=== PATIENT | male | born 1955 | race Caucasian/White ===

== ENCOUNTER 2024-12-23 12:24 | Outpatient (REF) | payer MEDICARE, SELFPAY ==
[2024-12-23 14:28] LABS: TSH reflex Free T4 0.95 uIU/mL (0.32-4.0)
--- OUTSIDE RECORDS SUMMARY | 2024-12-23 14:45 | XMS_ITS | Encounter Summary ---
Author Organization [facility] [address] Care Team Providers Care Brake Press Operator Name Role Phone Israel Keita MD Primary Care Provider [phone] Encounter Details Date Type Department Care Team (Late st Contact Info) Description 06/25/2024 9:55 AM EDT Hospital Encounter TH HISTORIC ENCOUNTERS EASTERN CONVERSION ONLY Social History Tobacco Use Types Packs/Day Years Used Date Smoking Tobacco: Every Day Cigarettes Smokeless Tobacco: Never Alcohol Use Standard Drinks/Week Comments Yes 0 (1 standard drink = 0.6 oz pur e alcohol) Sex and Gender Information Value Date Recorded Sex Assigned at Male 07/24/2024 9:21 AM EST Legal Sex Male 5:42 AM EST Gender Identity Male 07/24/2024 9:21 AM EST Sexual Orientation Straight 07/24/2024 9: 21 AM EST documented as of this encounter Last Filed Vital Signs Vital Sign Reading Time Taken Comments Blood Pressure - - Pulse - - Temperature - - Respiratory Rate - - Oxygen Saturation - - Inhaled Oxygen Concentration - - Weight 74.6 kg (164 lb 7.4 oz) 06/18/2024 10:30 AM EDT Height 175.3 cm (5' 9 ) 05/10/2023 10:41 AM EDT Body Mass Index 23.6 12/10/2023 11:02 AM EDT documented in this encounter Progress Notes * Historical, Notes Results - 06/25/2024 10:00 AM EDT 1040: PT arrives this morning for cycle 1 day 15 (week 3) of rituximab. PT reports recent stuffy nose and a dry cough. PT sts he had one day of a sore throat and chills which have resolved, denies any close sick contacts. Reported to Dr. Vazquez, respiratory direct viral panel obtained and sent. PTcontinues to report severe fatigue from treatment with some relief from rest. PTs BP is much betterthan last week, sts he sees his PCP tomorrow to f/u the HTN concern from last week. PT also sts he was able to get his plavix refilled and is back on that now. Otherwise stable assessment. PIV inserted, +BR noted, labs obtained and sent, flushed per protocol, fluids initiated and premedications admi nistered. PT given an apple juice, denies other concerns, call gonzalez in reach. Per Dr. Vazquez's note: obtain labs on week 1 and week 3 to monitor, no need to wait for results toresume treatment. Deacdron noted to be added to pre-medications. Reported to Dr. Vazquez as PT has been tolerating Rituximab well without deacdron added. Dr. Vazquez sts to omit the deacdron as there is no need att. 1145: Rituximab infusion initiated. PT denies concerns, watching tv, call gonzalez in reach. 1230: PT well tolerating Rituximab infusion thus far, denies concerns, call gonzalez in reach. 1315: Pt continues to tolerate Rituximab well without concern, up to the bathroom to urinate, eating lunch tray, call gonzalez in reach. 1405: PT continues to tolerate Rituximab well without concern. Family at chairside talking, denies concerns, call gonzalez in reach. 1500: Rituximab infusion completed without concern. Respiratory panel resulted with +rhinovirus, PTmade aware and encouraged to hydrate and call with worsening sx. PIV flushed per protocol and removed, dressing applied. PT provided with apt reminder via calendar, verbalized understanding, left unit, stable at D/C. documented in this encounter Plan of Treatment Upcoming Encounters Date Type Department Care Team ([facility] st Contact Info) Description 01/14/2025 11:00 AM EDT Office Visit Endocrinology [address] [place] [address] Sandy Lira PA [address] [place] [address] 01/15/2025 11:00 AM EDT Office Visit [facility] Hematology Oncology [address] [place] [phone] Сергей Vazquez MD [address] [place] [address] 01/15/2025 11:30 AM EDT Appointment [facility] [address] [place] [phone] documented as of this encounter Visit Diagnoses Not on filedocumented in this encounter Care Teams Brake Press Operator Relationship Specialty Start Date End Date Israel Keita MD PCP - General Internal Medicine 04/03/19 09/17/24 documented as of this encounter
--- OUTSIDE RECORDS SUMMARY | 2024-12-23 14:45 | XMS_ITS | Encounter Summary ---
Author Organization [facility] Address [address] [place], [place] [id number] Care Team Providers Care Fur Tinter Name Role Phone Israel Keita MD Primary Care Provider Unavailab le Encounter Details Date Type Department Care Team Description 06/11/2024 Social Work [facility] Oncology Services [address] [place] [address] Jun Santos CDC ASSOCIATE Social History Tobacco Use Types Packs/Day Years Used Date Smoking Tobacco: Every Day Cigarettes 0.5 Smokeless Tobacco: Never Alcohol Use Standard Drinks/Week Comments Yes 0 (1 standard drink = 0.6 oz pur e alcohol) on occasion Sex and Gender Information Value Date Recorded Sex Assigned at Male 01/18/2023 4:34 PM EDT Gender Identity Not on file Sexual Orientation Not on file Job Start Date Occupation Industry Not on file Not on file Not on file documented as of this encounter Plan of Treatment Not on file documented as of this encounter Visit Diagnoses Not on filedocumented in this encounter Care Teams Fur Tinter Relationship Specialty Start Date End Date Israel Keita MD PCP - General Internal Medicine 11/23/22 documented as of this encounter
--- OUTSIDE RECORDS SUMMARY | 2024-12-23 14:45 | XMS_ITS | Encounter Summary ---
Author Organization [facility] Address [address] [place] [address] Care Team Providers Care Hand Molder Meat Name Role Phone Israel Keita MD Primary Care Provider [phone] Encounter Details Date Type Department Care Team (Late st Contact Info) Description 07/02/2024 9:43 AM EDT Hospital Encounter TH HISTORIC ENCOUNTERS [...] - Inhaled Oxygen Concentration - - Weight 75.8 kg (167 lb 3.2 oz) 07/02/2024 9:14 A M EDT Height 175.3 cm (5' 9 ) 05/10/2023 10:41 AM EDT Body Mass Index 23.99 12/10/2023 11:02 AM EDT documented in this encounter Progress Notes * Historical, Notes Results - 07/02/2024 10:00 AM EDT 1030: Pt arrives this morning with family after [facility] for his fourth weekly treatment of Rituximab.PT reports feeling very fatigued after testing + for Rhinovirus last week. PT also reporting clogged ears , sts he reported to Dr. Vazquez this morning and he will be sending over a Sudafed prescription for 5 days. Otherwise stable assessment. PIV inserted, +BR noted, flushed per protocol and fluids initiated. Premedications administered and PT given some water and snacks, watching tv, call bellin reach. 1130: Rituximab infusion initiated, at multistep rate below. PT denies concerns, call gonzalez in reach. Rituximab multi-step rate : 100mg/hr : 71.4mL/hr 200mg/hr : 143mL/hr 300mg/hr: 214mL/hr 400mg/hr : 286mL/hr 1200: PT completed step 1 and well tolerating infusion thus far, denies concerns, call gonzalez in reach. 1230: PT continues to tolerate Rituximab well without concern, call gonzalez in reach. This RN reached out to Dr. Vazquez regarding future [address] Vazquez start PTs Q2MO treatment the first week of 2024. Dr. Vazquez also sts to have PT get labs done the dayof treatment ([id number]) and no need to wait for lab results to proceed with Rituximab infusion. PT made aware and verbalized understanding, continues to tolerate infusion well, call gonzalez in reach. 1300: PT continues to tolerate Rituximab well without concerns, ate lunch tray, call gonzalez in reach. 1400: Rituximab infusion completed without concern. PIV flushed and removed, tip in tact, dressing applied. PT provided with future apts via calendar, verbalized understanding. PT denies other concerns, left unit, stable at D/C. documented in this encounter Plan of Treatment Upcoming Encounters Date Type Department Care Team (Late st Contact Info) Description 01/14/2025 11:00 AM EDT Office Visit [place] [address] [place] [address] Sandy Lira PA [address] [place] [address] 01/15/2025 11:00 AM EDT Office Visit [facility] Hematology Oncology [address] [place] [address] Сергей Vazquez MD [address] [place] [address] 01/15/2025 11:[address] [facility] [address] [phone] documented as of this encounter Visit Diagnoses Not on filedocumented in this encounter Care Teams Hand Molder Meat Relationship Specialty Start Date End Date Israel Keita MD PCP - General Internal Medicine 04/03/19 09/17/24 documented as of this encounter
--- OUTSIDE RECORDS SUMMARY | 2024-12-23 14:45 | XMS_ITS | Clinical Summary ---
Author Organization [facility] Address [address] [place] [address] Care Team Providers Care Internal Controls Manager Name Role Phone Israel Keita MD Primary Care Provider Unavailab le Allergies No known active allergies Medications Medication Sig Dispensed Refills Start Date End Date Status dulaglutide (Trulicity) 1.5 MG/0.5ML subcutaneous pen-injector Inject under the skin. 0 Active metFORMIN (GLUCOPHAGE) tablet 500 mg Take 2 tablets (1,000 mg total) by mouth 2 (two) times a day with meals. 0 Active atorvastatin (LIPITOR) tablet 40 mg Take 1 tablet (40 mg total) by mouth daily. 0 Active clopidogrel (PLAVIX) 75 MG tablet Take 1 tablet (75 mg total) by mouth daily. 0 Active aspirin EC 81 MG tablet Take 1 tablet (81 mg total) by mouth daily. 0 Active polyethylene glycol (MIRALAX) 17 g packet Take 17 g by mouth daily. 0 Active LORazepam (ATIVAN) 0.5 MG tablet Take 1 tablet (0.5 mg total) by mouth every 6 (six) hours as needed. 60 tablet 1 02/01/2023 Active meclizine (ANTIVERT) 25 MG tablet Take 1 tablet (25 mg total) by mouth 3 (three) times a day as needed for dizziness. 30 tablet 1 02/08/2023 Active Semaglutide (OZEMPIC, 0.25 OR 0.5 MG/DOSE, SC) Inject under the skin. 0 Active megestrol (MEGACE) suspension 40 mg/mL TAKE 20 ML (800 MG TOTAL) BY MOUTH DAILY. 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 Family History Medical History Relation Name Comments Cancer Father Cancer Sister Relation Name Status Comments Father Sister Social History Tobacco Use Types Packs/Day Years Used Date Smoking Tobacco: Every Day Cigarettes 0.5 Smokeless Tobacco: Never Tobacco Cessation:Ready to Q uit: Not Asked; Counseling Given: Not Answered Alcohol Use Standard Drinks/Week Comments Yes 0 (1 standard drink = 0.6 oz pur e alcohol) on occasion Sex and Gender Information Value Date Recorded Sex Assigned at Male 01/18/2023 4:34 PM EDT Gender Identity Not on file Sexual Orientation Not on file Job Start Date Occupation Industry Not on file Not on file Not on file Last Filed Vital Signs Vital Sign Reading Time Taken Comments Blood Pressure 134/55 07/02/2024 10:05 AM EDT Pulse 74 07/02/2024 10:05 AM EDT Temperature 36.5 ??C (97.7 ??F) 07/02/2024 10:05 AM E DT Respiratory Rate 16 07/02/2024 10:05 AM EDT Oxygen Saturation 100% 07/02/2024 10:05 AM EDT Inhaled Oxygen Concentration - - Weight 75.8 kg (167 lb) 07/02/2024 10:05 AM EDT Height 175.3 cm (5' 9 ) 05/10/2023 10:41 AM EDT Body Mass Index 24.66 05/10/2023 10:41 AM EDT Plan of Treatment Health Maintenance Due Date Last Done Comments Hepatitis C Screening 1955 COVID-19 Vaccine (#1) 12/13/1959 Depression Screening 1966 Preventative Health Evaluation 1972 Tobacco Cessation Counseling 1972 Shingrix-Zoster Vaccine (1 o f 2) 1973 Colon Cancer Screening (Colonoscopy) 12/13/1999 RSV Adult > 60+ Yrs or (1 - Risk 60-74 years 1-dose series) 2014 Abdominal Aortic Aneurysm (AAA) Screening 12/13/2019 Fall Risk Assessment 12/13/2019 Influenza Vaccine (#1) 2024 8, 06/11/2016, 08/14/2012 DTap / Tdap / Td (2 - Td or Tdap) 06/11/2026 06/11/2016, 11/29/2003 Pneumococcal Vaccine Completed 12/06/2022, 04/25/2018, 08/14/2012 Hepatitis B Vaccines Aged Out No long er eligible based on patient's age to complete this topic RSV Ped < 20 months Aged Out No longe r eligible based on patient's age to complete this topic Care Teams Internal Controls Manager Relationship Specialty Start Date End Date Israel Keita MD PCP - General Internal Medicine 11/23/22
--- OUTSIDE RECORDS SUMMARY | 2024-12-23 14:45 | XMS_ITS | Encounter Summary ---
Author Organization [facility] Address [address] [place] [address] Care Team Providers Care Animal Warden Name Role Phone Israel Keita MD Primary Care Provider [phone] Encounter Details Date Type Department Care Team (Late st Contact Info) Description 06/18/2024 9:59 AM EDT Hospital Encounter TH HISTORIC ENCOUNTERS [...] - Inhaled Oxygen Concentration - - Weight 74.2 kg (163 lb 9.3 oz) 06/11/2024 8:56 A M EDT Height 175.3 cm (5' 9 ) 05/10/2023 10:41 AM EDT Body Mass Index 23.47 12/10/2023 11:02 AM EDT documented in this encounter Progress Notes * Historical, Notes Results - 06/18/2024 10:00 AM EDT 1010: PT arrives today for cycle 1 day 8 (second treatment) of Rituximab. PT denies any acute concerns, although does report severe fatigue for the past week. Otherwise stable assessment. PIV inserted, +BR noted, flushed per protocol, fluids initiated. PTs BP noted to be high; 191/92 - PT denies any sx. Reported to Dr. Vazquez who sts to have PT f/u with his PCP as he was recently taken off BP medications r/t orthostatic hypotension. PT made aware and verbalized understanding. PT denies concerns, call gonzalez in reach. 1100: Premedications tylenol and benadryl administered. PT denies concerns, up to the bathroom witha steady gait and back to chair, call gonzalez in reach. 1205: Rituximab infusion initiated at multistep rate below: 100mg/hr : 71.4mL/hr 200mg/hr : 143mL/hr 300mg/hr : 214mL/hr 400mg/hr : 286mL/hr PT reminded of allergy sx and to let staff know if he feels anything, call gonzalez in reach. 1240: PT well tolerating infusion thus far, denies concerns, eating lunch, call gonzalez in reach. 1330: PT continues to tolerate infusion well thus far, denies concerns, call gonzalez in reach. 1415: PT continues to tolerate infusion well without concerns, call gonzalez in reach. 1500: Rituximab infusion completed without concern. VS WNL now: BP HTN resolved. PIV flushed per protocol and removed, tip in tact. PT provided with future apt reminders via calendar, verbalized understanding, denies other questions or concerns, left unit amb with cane, stable at D/C. documented in this encounter Plan of Treatment Upcoming Encounters Date Type Department Care Team (Late st Contact Info) Description 01/14/2025 11:00 AM EDT Office Visit Endocrinology [address] [address] Sandy Lira PA [address] [place] [address] 01/15/2025 11:00 AM EDT Office Visit [facility] Hematology Oncology [address] [place] [phone] Сергей Vazquez MD [address] [place] [phone] 01/15/2025 11:[address] [facility] [address] [phone] documented as of this encounter Visit Diagnoses Not on filedocumented in this encounter Care Teams Animal Warden Relationship Specialty Start Date End Date Israel Keita MD PCP - General Internal Medicine 04/03/19 09/17/24 documented as of this encounter
--- OUTSIDE RECORDS SUMMARY | 2024-12-23 14:45 | XMS_ITS ---
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 Current Oncology Plans [facility] OP RITUXIMAB (IV/SC) WEEKLY X4* Plan Start Date:07/02/2024 Plan Provider:Сергей Vazquez MD Linked Problems Stage IIb lymphocyte-predomi nant Hodgkin's lymphoma (HCC) Treatment Medications acetaminophen (TYLENOL)albut saul (PROVENTIL)diphenhydrAMINE (BENADRYL)EPINEPHrinefamotidine (PF) (PEPCID)hydrocortisone (SOLU-CORTEF) IVriTUXimab-pvvr (RUXIENCE) infusion (Outpatient record)Saline Flush 0.9 %sodium chloride (NS) 0.9 %sodium chloride 0.9% bolus (NS) Past Plans ONCOLOGY TREATMENT Plan Name Start Date Discontinue Date Treatment Medications Discontinue Reason Plan Provider Cycles [facility] OP RITUXIMAB (IV/SC) WEEKLY X4 4 06/26/2024 acetaminophen (TYLENOL)albuterol (PROVENTIL)dexameth asone (DECADRON)diphenhyd rAMINE (BENADRYL)EPINEPHri neEPINEPHrine (Anaphylaxis) (ADRENALIN)famotidi ne (PF) (PEPCID)hydrocortis one (SOLU-CORTEF) IVHydrocortisone Sod Suc (PF) (Solu-CORTEF)rituxi mab infusionriTUXimab-p vvr (RUXIENCE) infusion (Outpatient record)Saline Flush 0.9 %sodium chloride (NS) 0.9 %sodium chloride 0.9% bolus (NS) Therapy Complete Сергей Vazquez MD 1 of [address] [facility] OP RITUXIMAB (IV/SC) WEEKLY X4 3 11/14/2023 acetaminophen (TYLENOL)albuterol (PROVENTIL)diphenhy drAMINE (BENADRYL)EPINEPHri nefamotidine (PF) (PEPCID)hydrocortis one (SOLU-CORTEF) IVmeperidine (DEMEROL) 25 MG/MLriTUXimab-pvvr (RUXIENCE) infusion (Outpatient record)Saline Flush 0.9 %sodium chloride (NS) 0.9 %sodium chloride 0.9% bolus (NS) Therapy Complete Сергей Vazquez MD 1 of 1 cycle started Radiation Treatments * No radiation treatments are documented for this patient in [facility]. Treatments may have been administered in another system.
--- OUTSIDE RECORDS SUMMARY | 2024-12-23 14:45 | XMS_ITS | Encounter Summary ---
Author Organization [facility] Address [address] [place] [address] Care Team Providers Care Machine Operator Transplanter Name Role Phone Israel Keita MD Primary Care Provider [phone] Encounter Details Date Type Department Care Team (Late st Contact Info) Description 06/11/2024 Hospital Encounter TH HISTORIC ENCOUNTERS EASTERN CONVERSION [...] 11:02 AM EDT documented in this encounter Plan of Treatment Upcoming Encounters Date Type Department Care Team (Late st Contact Info) Description 01/14/2025 11:00 AM EDT Office Visit Endocrinology - [place] [address] [place] [address] Sandy Lira PA [address] [place] [address] 01/15/2025 11:00 AM EDT Office Visit [facility] Hematology Oncology [address] [place] [phone] Сергей Vazquez MD [address] [place] [address] 01/15/2025 11:[address] [facility] [address] [phone] documented as of this encounter Visit Diagnoses Not on filedocumented in this encounter Care Teams Machine Operator Transplanter Relationship Specialty Start Date End Date Israel Keita MD PCP - General Internal Medicine 04/03/19 09/17/24 documented as of this encounter
--- OUTSIDE RECORDS SUMMARY | 2024-12-23 14:45 | XMS_ITS | Encounter Summary ---
Author Organization [facility] Address [address] [place] [address] Care Team Providers Care Ham Boner Name Role Phone Israel Keita MD Primary Care Provider [phone] Encounter Details Date Type Department Care Team (Late st Contact Info) Description 07/02/2024 9:08 AM EDT Hospital Encounter TH HISTORIC ENCOUNTERS EASTERN CONVERSION ONLY Сергей Vazquez MD [address] [place] [address] Social History Tobacco Use Types Packs/Day Years [...] Sign Reading Time Taken Comments Blood Pressure 143/47 07/02/2024 9:14 AM EDT Sitting Left arm Pulse 77 07/02/2024 9:14 AM EDT Temperature - - Respiratory Rate - - Oxygen Saturation - - Inhaled Oxygen Concentration - - Weight 75.8 kg (167 lb 3.2 oz) 07/02/2024 9:14 AM EDT Height 175.3 cm (5' 9 ) 05/10/2023 10:4 1 AM EDT Body Mass Index 23.99 12/10/2023 11:02 AM EDT documented in this encounter Progress Notes * Сергей Vazquez MD - 07/02/2024 9:15 AM EDT Diagnosis/treatment: Stage IIB nodular lymphocyte-predominant Hodgkin lymphoma, diagnosed in 12/2022. He started Rituxan weekly x4 on 01/17/2023 and completed treatment on 02/08/2023. He progressed in 12/2023. He started Rituxan weekly x 4 on 06/10/2024. Interval history: The patient is a 68-year-old gentleman who had anorexia and 105 pound weight loss from late 2020 toearly 2022. He reported associated chills and sweats. He denied fevers. He reported moderate fatigue. He developed epigastric pain in early 2022, which later resolved. An A/P CT with IV and without oral contrast on 10/18/2022 showed lower abdominal lymphadenopathy, with a 5.1 cm right external iliac node, a 1.7 cm right iliac node, 1.0 cm pelvic sidewall node, and a 4.5 cm right inguinal node. He underwent an FNA of a right inguinal node on 11/08/2022 and the cytology showed blood only. He underwent an excisional biopsy of a right inguinal node on 12/28/[address] Daley and the pathology showed anodular lymphocyte-predominant Hodgkin lymphoma, pattern A. Large abnormal lymphocytes were KX95-yxnvzedk, PAX5-positive EJ98-didlknom and PM84-lhnobumx by IHC and and JENNIFER-negative by-SALAS. A CBC on 11/06/2022 showed WBC 10.0, hemoglobin 13.4 with MCV 85, and platelet count 466,000. A PET/CT on 01/15/2023 showed uptake in periaortic, right iliac, and right inguinal lymphadenopathy with SUV 5.6 in the right inguinal region. He tolerated Rituxan well without side effects. A PET/CT in 05/02/2023 showed resolution of uptake in periaortic and right iliac nodes. There was persistent but decreased activity and a distal right external iliac nodes with SUV 4.5 and a solitary right inguinal node with SUV 4.3. He reported resolution of the chills and sweats. He reports lessened fatigue. He has persistent mild anorexia. He lost weight from 176 pounds in 08/09/2023 down to 154 pounds on 04/09/2024, which he attributes in part due to to Ozempic therapy for diabetes. His weight was stable over the last interval. He reports GERD symptoms on the Ozempic. He reports recurrent intermittent night sweats since mid-12/2023. A PET/CT on 01/03/2024 showed mild progression with increased uptake in a right external iliac lymphadenopathy with SUV 7.8 and increased uptake in the right groin lymphadenopathy with SUV 7.9. A PET/CT on 04/15/2024 showed mild progression with increased uptake in a right para-aortic node withSUV 3.4, increased uptake in other retroperitoneal nodes with SUV 3.3 on the left and 3.7 on the right, increased uptake in a right external iliac gloria conglomerate with SUV 9.6, uptake in right external iliac nodes with SUV 6.3, and uptake in right groin nodes with SUV 8.4. There was nonspecific thickening of the upper esophagus with SUV 3.9 and nonspecific uptake in the fundus of the stomach with SUV 4.7. As above, he reports increased GERD symptoms on Ozempic. As below, he underwent an EGD and colonoscopy in 11/2023. He tolerated weekly Rituxan x 4 well without side effects. He reports an improved appetite on the Rituxan infusions. He gained weight from 165 pounds on 06/18/2024 to 167 pounds on 07/02/2024. He was diagnosed with Parkinson's in late 2021 and was started on Sinemet. He reports that his appetite improved in early 2022 on Sinemet. He reports generalized headaches since early 2022. He denies diplopia. He denies cough, hemoptysis,or dyspnea on exertion. He denies nausea or abdominal pain. He reports left hip pain since late 2021. He denies other sites of bone pain. He has a strong family history of cancer. His daughter tested positive for PMS2 mutation and was informed that she had Nick syndrome. 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 The patient's states that his daughter had the same PMS2 mutation. He underwent a colonoscopy on 09/27/[address] Meier which was unremarkable. An abdominal MRI with contrast on 03/29/2023 was unremarkable. He underwent an EGD and colonoscopy on 12/02/[address] Paul and the EGD revealed an irregular Z-line and a biopsy was obtained and the pathology showed esophageal squamocolumnar junction mucosa with rare intraepithelial eosinophils. The colonoscopy was not performed due to a suboptimal prep. He underwent a colonoscopy on 02/28/[address] Paul and a 0.7 cm polyp was found in the ascending colon andexcised and the pathology revealed a tubular adenoma and a 0.3 cm polyp was found in the sigmoid colon and was excised and the pathology revealed a hyperplastic polyp. Past medical history: Parkinson's disease, diabetes, diabetic neuropathy, hyperlipidemia, hypertension, peripheral vascular disease, S/P CVA. Current medications: Sinemet, Trulicity, metformin, atorvastatin, Plavix, aspirin 81 mg. Allergies: No known drug allergies. Family history: His father was diagnosed with Hodgkin's lymphoma in his 30s and age 56 from that cancer. His mother had no history of cancer. A paternal uncle was diagnosed with colon cancer and at an uncertain age from the cancer. 1 of 7 sisters was diagnosed with lung cancer in her 50s and survived that diagnosis. Another of 7 sisters was diagnosed with pancreatic cancer and age 47 from that [facility] [place] er. Another of 7 sisters was diagnosed with non-Hodgkin's lymphoma and in her 50s from that cancer. Another of 7 sisters was diagnosed with kidney cancer at age 72 and has survived that diagnosis. His 2 brothers have no history of cancer. His daughter and son have no history of cancer. His daughter tested positive for PMS 2 mutation and was informed that she has Nick syndrome. Social history: He is retired and formerly worked as a soda jerker. He is . He has a daughter and a son. His 3 grandchildren. He drinks alcohol occasionally. Started smoking in his teens and smoked up to a pack aday and continues to smoke. Review of systems: The remainder of a 10 point review of systems was unremarkable. Physical examination: HEENT: Sclerae anicteric, normal oropharyngeal membrane. Neck: No lymphadenopathy. Lungs: Clear to auscultation. Heart: No murmurs. Abdomen: Soft, nontender, no organomegaly or masses. Extremities: No axillary, inguinal, or femoral lymphadenopathy. No edema. Skin: No rash. Neurologic: Normal gait. Assessment/plan: The patient is a 68-year-old gentleman who presented in 12/2022 with a stage IIB nodular lymphocyte-predominant Hodgkin lymphoma. He reported moderate fatigue and chills and sweats at presentation. I recommended a course of Rituxan. I discussed potential infusion reactions. He tolerated Rituxan well without side effects. A PET/CT in 05/02/2023 showed resolution of uptake in periaortic and right iliac nodes. There was persistent but decreased activity and a distal right external iliac nodes and a solitary right inguinal node. He reported resolution of the chills and sweats. He reported lessened fatigue. He developed recurrent intermittent night sweats in mid-12/2023. He has had continued anorexia and significant weight loss, in part due to Ozempic therapy. I prescribed Megace. A PET/CT on 01/03/2024 showed mild progression with increased uptake in right external iliac lymphadenopathy and right groin lymphadenopathy. A PET/CT on 04/15/2024 showed continued mild progression with increased uptake in intra-abdominal nodes and right groin lymphadenopathy. As he is symptomatic with night sweats, we will repeat a course of Rituxan weekly x 4. We will add Rituxan maintenance every 2 months. He tolerated weekly Rituxan x 4 well without side effects. He reports an improved appetite on the Rituxan infusions. He gained weight from 165 pounds on 06/18/2024 to 167 pounds on 07/02/2024. His daughter was diagnosed with Nick syndrome. The patient carries the same mutation as his daughter and was diagnosed with Nick syndrome. He underwent colonoscopy in 09/2022 which was unremarkable.He underwent an EGD in 11/2023 which was unremarkable. He underwent a colonoscopy in 02/2024 and 2 colonic polyps were excised. An abdominal MRI in late 03/2023 was unremarkable. He is followed by a urologist. This encounter is of high risk. The patient has a Hodgkin's lymphoma, which is a life-threatening condition. He receives treatment with weekly Rituxan, which carries a risk of significant morbidity and mortality. documented in this encounter Plan of Treatment Upcoming Encounters Date Type Department Care Team (Late st Contact Info) Description 01/14/2025 11:00 AM EDT Office Visit Endocrinology - [place] [address] [place] [address] Sandy Lira PA [address] [place] [address] 01/15/2025 11:00 AM EDT Office Visit [facility] Hematology Oncology [address] [place] [phone] Сергей Vazquez MD [address] [place] [phone] 01/15/2025 11:30 AM EDT Appointment [facility] Infusion Center [address] [place] [phone] documented as of this encounter Procedures Procedure Name Priority Date/Time Associated Diagnosis Comments ..MISCELLANEOUS REFERENCE LAB TEST 07/02/2024 ..MISCELLANEOUS REFERENCE LAB TEST 07/02/2024 documented in this encounter Results * Miscellaneous reference lab test (07/02/2024) Provider Onbase MD LAB BLOOD ORDERABLES Final Re sult * Miscellaneous reference lab test (07/02/2024) Provider Onbase MD LAB BLOOD ORDERABLES Final Re sult documented in this encounter Visit Diagnoses Not on filedocumented in this encounter Care Teams Ham Boner Relationship Specialty Start Date End Date Israel Keita MD PCP - General Internal Medicine 04/03/19 09/17/24 documented as of this encounter
--- OUTSIDE RECORDS SUMMARY | 2024-12-23 14:45 | XMS_ITS | Encounter Summary ---
Author Organization [facility] Address [address] [place] [address] Care Team Providers Care Neonatal Social Worker Name Role Phone Israel Keita MD Primary Care Provider [phone] Reason for Visit * Reason Onset Date Comments Referral 12/01/2024 Endo Encounter Details Date Type Department Care Team (Late st Contact Info) Description 12/01/2024 Telephone Internal Medicine - [place] [address] [facility] [address] [place] [phone] Israel Keita MD [address] [facility] [address] [place], [place] [phone] Referral (Endo) Social History Tobacco Use Types Packs/Day Years [...] AM EST documented as of this encounter Progress Notes * Annabella Uribe - 12/01/2024 9:57 AM EDT Referral Request: What insurance does the patient have today? Payor: [employer] / Plan: [facility] MEDICARE ADVANTAGE / Product Type: *No Product type* / Referrals cannot be processed if the insurance is not accurate. If the insurance listed above in red is NO BILLING INFORMATION FOUND FOR THIS ENCOUTNER The patients correct insurance must be obtained and registered in [facility] or their referral can not be processed. Is this a retro request? no. If yes for what date of service do you need the retro referral? not applicable Who is calling to request this referral? N/a If the caller is not the patient, what is their name? not applicable Ask the patient WHO referred them to this specialty: Not an initial visit; it is for follow up/continuation of care. Patients PCP is Dr sIrael Keita FIRST and LAST NAME of SPECIALIST PATIENT is seeing: Sandy Lira What specialty is this? Endo DIAGNOSIS Patient is being seen for (Not a body part or a procedure): diabetes Have you seen this SPECIALIST for this PROBLEM/DX before? If YES, when? Yes. 12/05/23 Have you checked REVIEW or the APPT DESK to see if this referral has already been done or has visits left? yes Is this visit: Follow Up Address of Specialist: [address] [place] [address] Phone # of Specialist: [phone] Fax #: (if applicable): [phone] Does patient have an appointment scheduled?: yes Date of appointment- (including a retro-request): 12/03/24 Is this appointment related to: Not MVA, worker compensation, or surgery related documented in this encounter Plan of Treatment Upcoming Encounters Date Type Department Care Team (Late st Contact Info) Description 01/14/2025 11:00 AM EDT Office Visit Endocrinology - [place] [address] [place] [address] Sandy Lira PA [address] [place] [address] 01/15/2025 11:00 AM EDT Office Visit [facility] Hematology Oncology [address] [place] [phone] Сергей Vazquez MD [address] [place] [phone] 01/15/2025 11:30 AM EDT Appointment [facility] [address] [phone] documented as of this encounter Visit Diagnoses Not on filedocumented in this encounter Care Teams Neonatal Social Worker Relationship Specialty Start Date End Date Israel Keita MD [address] [address] PCP - General Internal Medicine 09/18/24 documented as of this encounter
--- OUTSIDE RECORDS SUMMARY | 2024-12-23 14:45 | XMS_ITS | Encounter Summary ---
Author Organization [facility] Address [address] [place] [address] Care Team Providers Care Licensed Nuclear Control Room Operator Name Role Phone Israel Keita MD Primary Care Provider [phone] Encounter Details Date Type Department Care Team (Latest Contact Info) Description 06/11/2024 9:00 AM EDT Hospital Encounter TH HISTORIC ENCOUNTERS EASTERN CONVERSION ONLY Nodular lymphocyte predominant Hodgkin lymphoma, unspecified site ([facility] V24, CMS/[facility] V28) Social History Tobacco Use Types Packs/Day Years [...] Progress Notes * Historical, Notes Results - 06/11/2024 9:00 AM EDT 0930: PT arrives today with and daughter for initial cycle of Rituximab. PT oriented to unit policies and procedures. PT provided with information handout regarding Rituximab and info reviewed, all questions and concerns addressed. Allergies and medications reconciled. PT sts he last received this medication over 1 yr ago. PT sts he did well with it previously without concerns. PT also denies any acute concerns today. PIV inserted, +BR noted, labs obtained and sent, flushed per protocol and fluids initiated. Per Dr. Vazquez- obtain labs week 1 and week 3 same day of treatment and no need to wait for results to initiate treatment. PT made aware of plan and verbalized understanding, denies concerns, call gonzalez in reach. 1000: Premedications administered and initial assessment obtained. PT given water, denies concerns,call gonzalez in reach. 1110: Rituximab infusion initiated at multistep rate found below: 50mg/hr : 35.7mL/hr 100mg/hr : 71.4mL/hr 150mg/hr: 107mL/hr 200mg/hr : 143mL/hr 250mg/hr : 179mL/hr 300mg/hr : 214mL/hr 350mg/hr : 250mL/hr 400mg/hr : 286mL/hr PT denies concerns, reminded of allergy sx and to let staff know if he feels anything, verbalized understanding, call gonzalez in reach. 1140: PT well tolerated step 1 denies concerns, VS WNL, call gonzalez in reach. 1210: PT well tolerated step 2, denies concerns, VS WNL, up to the bathroom with a steady gait thishour, call gonzalez in reach. 1240: PT well tolerated step 3, denies concerns, ate entire lunch tray, VS WNL, call gonzalez in reach. 1310: PT continues to tolerate ruxience well, denies concerns, VS WNL, step 4 completed and step 5 initiated. PT given more water, call gonzalez in reach. 1340: PT well tolerated step 5, denies concerns, VS WNL, call gonzalez in reach. 1410: PT continues to tolerate ruxience well, denies concerns, step 7 initiated, VS WNL, call gonzalez in reach . 1440: Step 7 completed without concern, VS WNL, PT denies concerns, up to the bathroom again to urinate, call gonzalez in reach. 1450: Rituximab infusion completed without concern. PIV flushed per protocol and removed, tip in tact, dressing applied. BP noted to be high all day today, PT sts he was taken off BP medications r/t orthostatic hypotension. This RN encouraged PT to f/u with pcp regarding HTN. PT provided with future apt reminders via calendar, verbalized understanding, denies other concerns, left unit, stable at D/C. documented in this encounter Plan of Treatment Upcoming Encounters Date Type Department Care Team (Late st Contact Info) Description 01/14/2025 11:00 AM EDT Office Visit Endocrinology [address] [phone] Sandy Lira PA [address] [place] [address] 01/15/2025 11:00 AM EDT Office Visit [facility] Hematology Oncology [address] [place] [phone] Сергей Vazquez MD [address] [place] [phone] 01/15/2025 11:30 AM EDT Appointment [facility] Infusion Center [address] [place] [phone] documented as of this encounter Visit Diagnoses Diagnosis Nodular lymphocyte predominant Hodgkin lymphoma, unspecified site (CMS/HCC V24, CMS/HCC V28) documented in this encounter Care Teams Licensed Nuclear Control Room Operator Relationship Specialty Start Date End Date Israel Keita MD PCP - General Internal Medicine 04/03/19 09/17/24 documented as of this encounter
--- OUTSIDE RECORDS SUMMARY | 2024-12-23 14:45 | XMS_ITS | Clinical Summary ---
Author Organization [facility] Address [address] [place] [address] Phone Care Team Providers Care Pantry Worker Name Role Phone Israel Keita MD Primary Care Provider [phone] Allergies No known active allergies Medications blood-glucose sensor (FREESTYLE JOE 3 SENSOR MISC) 1 Device by Does not apply route every 14 days. 04/15/20 24 Active blood-glucose meter,continuous (FreeStyle Joe 3 [place]) misc 1 Device by Does not apply route daily. 04/15/20 24 Active glucose blood test strip Check twice a day 12/17/19 24 Active carbidopa-levodop a (SINEMET) 25-100 mg per tablet Take 1 Tablet by mouth 3 times daily. Active ONETOUCH DELICA LANCETS MISC Apply 1 Stick topically 2 times daily. 02/13/20 22 Active blood-glucose meter kit Check twice a day 02/13/20 22 Active clopidogreL (PLAVIX) 75 mg tablet TAKE 1 TABLET BY MOUTH DAILY. 90 tablet 1 09/10/19 25 Active atorvastatin (LIPITOR) 40 mg tablet TAKE 1 TABLET BY MOUTH EVERY DAY 90 tablet 10/06/19 25 Active gabapentin (NEURONTIN) 300 mg capsule Take 1 capsule (300 mg total) by mouth at bedtime. 30 each 11 11/21/19 25 2025 Active pen needle, diabetic (BD Ultra-Fine Short Pen Needle) 31 gauge x 5/16 needle Use to inject 1 times daily as directed 100 each 11 12/04/19 25 Active insulin glargine (Lantus Solostar U-100 Insulin) 100 unit/mL (3 mL) injection pen Inject 10 units Sc at bedtime, go up by 4 units every 4 days if Bs above 130. Max dose 60 units 15 mL 11 12/04/19 25 Active semaglutide (Ozempic) 0.25 mg or 0.5 mg (2 mg/3 mL) injection penIndications:Di abetes mellitus type 2 with neurological manifestations ([facility] V24, [facility] V28) Inject 0.5 mg under the skin every 7 (seven) days. 9 mL 1 12/04/19 25 Active metFORMIN (GLUCOPHAGE) 1,000 mg tablet TAKE 1 TABLET BY MOUTH TWICE DAILY WITH MEALS 180 tablet 3 12/11/19 25 Active semaglutide (Ozempic) 0.25 mg or 0.5 mg (2 mg/3 mL) injection pen INJECT 0.5 MG INTO THE SKIN EVERY 7 DAYS. 06/04/20 24 2024 Discontinued(R eorder) metFORMIN (GLUCOPHAGE) 1,000 mg tablet TAKE 1 TABLET BY MOUTH TWICE DAILY WITH MEALS 60 tablet 11/12/19 25 2024 Discontinued semaglutide (Ozempic) 0.25 mg or 0.5 mg (2 mg/3 mL) injection pen Inject under the skin every 7 (seven) days. 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 ([facility] V24, [facility] V28) 07/02/2024 Diabetic cataract [place] [place], [facility] V28) Parkinson's disease with dys kinesia ([facility] V24, [facility] V28) 12/05/2023 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 I do think his symptoms are due to orthostatic hypotension. I believe this is due to combination of his diabetes and he could have diabetic neuropathy autonomic neuropathy but also from Parkinson's disease. I am going to check an echocardiogram. After reviewing this I will consider putting him on Florinef. I discussed the indication for medication as well as some, but not all possible side effects including fact that sometimes this can lead to fluid retention/congestive heart failure. If this does not seem to resolve her symptoms then would consider midodrine. Inguinal hernia 01/09/2018 Overview (07/01/2024): Right Vertigo 01/09/2018 Carotid stenosis 07/18/2017 Overview (07/01/2024): S/p endarterectomy Diabetic neuropathy ([facility] V24, [facility] V28) 1 09/17/2016 DM (diabetes mellitus), type 2 with peripheral vascular complications ([facility] V24, [facility] V28) 07/18/2017 Hyperlipidemia 07/18/2017 Type 2 diabetes mellitus wit h cataract ([facility] V24, [facility] V28) 07/18/2017 Multiple pulmonary nodules 05/17/2017 Overview (07/01/2024): Lung biopsy sched for 10/15/2017 Hypertension 04/12/2017 Diabetes mellitus type 2 wit h neurological manifestations ([facility] V24, [facility] V28) 07/04/2005 Spinal stenosis, lumbar brenna on, without neurogenic claudication 07/04/2005 Overview (07/01/2024): bulging disc L 4,5 Encounters Date Type Department Care Team Description 12/03/2024 1:00 PM EDT Office Visit Endocrinology [facility] [address] [place] [address] Sandy Lira PA Diabetes mellitus type 2 with neurological manifestations ([facility] V24, [facility] V28) (Primary Dx) 12/01/2024 Telephone Internal Medicine - [place] [address] [place] [address] Israel Keita MD Referral (Endo) 11/20/2024 10:24 AM EDT - 11/20/2024 11:59 PM EDT Hospital Encounter [facility] [address] [phone] Сергей Vazquez MD 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 ([facility] [place], [facility] V28) (Primary Dx) Discharge Disposition: Home or Self Care 11/20/2024 10:00 AM EDT Office Visit [facility] Hematology Oncology [address] [place] [phone] Сергей Vazquez MD 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 ([facility] V[facility], [facility] V28) (Primary Dx) from Last 3 Months Immunizations Name Administration Dates Next Due Influenza trivalent, 0.5mL, preservative free (Fluarix; FluLaval; Fluzone) ages 6mo and older (Afluria) 3 years and older 07/25/2005 Pneumococcal conjugate 13 va lent (Prevnar 13, PCV13) 2mo and older 04/25/2018 Pneumococcal conjugate 20 va lent (Prevnar 20, PCV 20) 2mo and older 12/06/2022 Td Tetanus diptheria (Tdvax) 7yo and older 11/10 Td, Unspecified 11/29/2003 Surgical History Surgery Date Site/Laterality Comments CAROTID ARTERY ANGIOPLASTY PROCEDURE:CAROTID ARTERY ANGIOPLASTY LUNG REMOVAL, PARTIAL PROCEDURE:LUNG REMOVAL, PARTIAL;COMMENT:RUL wedge resection x2 d/t nodule in the setting of COPD/smoker Medical History Medical History Date Comments Stroke ([facility] [place], [facility] V28) DX:Stroke (HCC) Diabetes mellitus ([facility] [place], [facility] V28) DX:Diabetes mellitus (HCC) Family History Medical History Relation Name Comments Cancer Father Cancer Sister Relation Name Status Comments Father Sister Social History Tobacco Use Types Packs/Day Years Used Date Smoking Tobacco: Every Day Cigarettes Smokeless Tobacco: Never Tobacco Cessation:Ready to Q [...] Orientation Straight 07/24/2024 9: 21 AM EST Obstetrics History Last Filed Vital Signs Vital Sign Reading Time Taken Comments Blood Pressure 128/64 12/03/2024 1:05 PM EDT Pulse 81 12/03/2024 1:05 PM EDT Temperature 36.5 ??C (97.7 ??F) 12/03/2024 1:05 PM ED T Respiratory Rate 14 12/03/2024 1:05 PM EDT Oxygen Saturation 98% 12/03/2024 1:05 PM EDT Inhaled Oxygen Concentration - - Weight 81.6 kg (180 lb) 12/03/2024 1:05 PM EDT Height 177.8 cm (5' 10 ) 12/03/2024 1:05 PM EDT Body Mass Index 25.83 12/03/2024 1:05 PM EDT Plan of Treatment Upcoming Encounters Date Type Department Care Team (Late st Contact Info) Description 01/14/2025 11:00 AM EDT Office Visit Endocrinology [address] [phone] Sandy Lira PA [address] [place] [address] 01/15/2025 11:00 AM EDT Office Visit [facility] Hematology Oncology [address] [place] [phone] Сергей Vazquez MD [address] [place] [phone] 01/15/2025 11:30 AM EDT Appointment [facility] [address] [phone] Health Maintenance Due Date Last Done Comments Diabetes: Annual Foot Exam 1964 Diabetes: Annual Retina Eye Exam 1964 Zoster Vaccines (1 of 2) 1973 DTaP,Tdap,and Td Vaccines (3 - Td or Tdap) 11/10/2014 11/10/2004, 11/29/2003 RSV Immunization Adult Patients (1 - Risk 60-74 years 1-dose series) 2014 Abdominal Aortic Aneurysm (AAA) Screen 08/18/2022 Hepatitis C Screening 08/18/2022 Social Influencers of Health Screening 08/18/2022 Diabetes: Annual Urine Albumin-Creatinine Ratio (uACR) 10/15/2023 10/15/2022 COVID-19 Vaccine ( season) 2024 09/13/2021, 12/21/2020, 11/29/2020 Depression Screening 12/09/2024 12/10/2023 Medicare Annual Wellness Visit 12/09/2024 12/10/2023 Influenza Vaccine (Season Ended) 2025 09/13/2021, 10/16/2017, 08/14/2012, Additional history exists Diabetes: Blood Sugar Control Test (HGBA1C) 06/05/2025 12/03/2024, 11/27/2023 Diabetes: Annual GFR (Glomerular Filtration Rate) 11/16/2025 11/16/2024, 09/18/2024, 11/27/2023 Hypertension/CHF/CAD Annual BMP Blood Test 11/16/2025 11/16/2024, 09/18/2024, 11/27/2023 Falls Risk Assessment 11/20/2025 11/20/2024 Cholesterol Screening (Lipid Panel) 11/26/2028 11/27/2023 Colorectal Cancer Screening: Colonoscopy 02/27/2034 02/28/2024 Pneumococcal Vaccine: 50+ Years Completed 12/06/2022, 04/25/2018, 08/14/2012 HIB Vaccines Aged Out No longer eligi ble based on patient's age to complete this topic HPV Vaccines Aged Out No longer eligi ble based on patient's age to complete this topic Hepatitis A Vaccines Aged Out No long er eligible based on patient's age to complete this topic Hepatitis B Vaccines Aged Out No long er eligible based on patient's age to complete this topic IPV Vaccines Aged Out No longer eligi ble based on patient's age to complete this topic MMR Vaccines Aged Out No longer eligi ble based on patient's age to complete this topic Meningococcal ACWY Vaccine Aged Out N o longer eligible based on patient's age to complete this topic Meningococcal B Vaccine Aged Out No l onger eligible based on patient's age to complete this topic RSV Immunization Patients Under 20 months Aged Out No longer eligible based on patient's age to complete this topic Varicella Vaccines Aged Out No longer eligible based on patient's age to complete this topic Procedures Procedure Name Priority Date/Time Associated Diagnosis Comments HEMOGLOBIN A1C Routine 12/03/2024 1:46 PM EDT Diabetes mellitus type 2 with neurological manifestations (CMS/HCC V24, CMS/HCC V28) CBC WITH AUTO DIFFERENTIAL Routine 11/16/2024 1:48 PM EDT 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 (CMS/HCC V24, CMS/HCC V28) LACTATE DEHYDROGENASE Routine 11/16/2024 1:48 PM EDT 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 (CMS/HCC V24, CMS/HCC V28) COMPREHENSIVE METABOLIC PANEL Routine 11/16/2024 1:48 PM EDT 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 223 mg/dL LAB CHEMISTRY METHOD 12/03/2024 9:23 PM EDT [facility] Blood Venous blood specimen / Unknown Venipuncture / Unknown 12/03/2024 1:46 PM EDT 12/03/2024 1:46 PM EDT us Sandy ENGLISH LAB BLOOD ORDERABLES Final Result [facility] [address] [place] [address], * (ABNORMAL) CBC auto differential (11/16/2024 1:48 PM EDT) WBC 11.0(H) 4.8 - 10.8 K/mcL LAB HEMETOLOGY METHOD 11/16/2024 5:09 PM EDT [facility] RBC 4.00(L) 4.50 - 5.50 M/mcL LAB HEMETOLOGY METHOD 11/16/2024 5:09 PM EDT [facility] Hemoglobin 11.5(L) 13.5 - 17.5 g/dL LAB HEMETOLOGY METHOD 11/16/2024 5:09 PM EDT [facility] Hematocrit 35.8(L) 42.0 - 54.0 % LAB HEMETOLOGY METHOD 11/16/2024 5:09 PM EDT [facility] MCV 89.9 79.0 - 98.0 FL LAB HEMETOLOGY METHOD 11/16/2024 5:09 PM EDT [facility] MCH 28.9 27.0 - 32.0 pcg LAB HEMETOLOGY METHOD 11/16/2024 5:09 PM EDT [facility] MCHC 32.1 32.0 - 37.0 g/dL LAB HEMETOLOGY METHOD 11/16[facility]24 [facility] RDW 13.9 11.0 - 15.0 % LAB HEMETOLOGY METHOD 11/16/2024 5:09 PM [facility] Platelets 360 130 - 400 K/mcL LAB HEMETOLOGY METHOD 11/16/2024 5:09 PM [facility] MPV 11.0 7.0 - 11.0 FL LAB HEMETOLOGY METHOD 11/16/2024 5:09 PM [facility] NRBC 0.0 <1.0 % LAB HEMETOLOGY METHOD 11/16/2024 5:09 PM [facility] NRBC Absolute 0.00 <0.10 K/mcL LAB HEMETOLOGY METHOD 11/16/2024 5:09 PM [facility] Neutrophils Relative 67.4 % LAB HEMETOLOGY METHOD 11/16/2024 5:09 PM [facility] Lymphocytes Relative 18.9 % LAB HEMETOLOGY METHOD 11/16/2024 5:09 PM [facility] Monocytes Relative 8.9 % LAB HEMETOLOGY METHOD 11/16/2024 5:09 PM [facility] Eosinophils Relative 3.3 % LAB HEMETOLOGY METHOD 11/16/2024 5:09 PM [facility] Basophils Relative 1.0 % LAB HEMETOLOGY METHOD 11/16/2024 5:09 PM [facility] Immature Granulocytes Relative 0.5 % LAB HEMETOLOGY METHOD 11/16/2024 5:09 PM [facility] Neutrophils Absolute 7.40(H) 1.50 - 7.00 K/mcL LAB HEMETOLOGY METHOD 11/16/2024 5:09 PM [facility] Lymphocytes Absolute 2.07 1.00 - 5.00 K/mcL LAB HEMETOLOGY METHOD 11/16/2024 5:09 PM [facility] Monocytes Absolute 0.97 0.20 - 1.00 K/mcL LAB HEMETOLOGY METHOD 11/16/2024 5:09 PM EDT [facility] Eosinophils Absolute 0.36 0.00 - 0.50 K/mcL LAB HEMETOLOGY METHOD 11/16/2024 5:09 PM EDT [facility] Basophils Absolute 0.11 0.00 - 0.20 K/mcL LAB HEMETOLOGY METHOD 11/16/2024 5:09 PM EDT [facility] Immature Granulocytes Absolute 0.05(H) 0.00 - 0.03 K/mcL LAB HEMETOLOGY METHOD 11/16/2024 5:09 PM EDT [facility] Blood Venous blood specimen / Unknown Venipuncture / Unknown 11/16/2024 1:48 PM EDT 11/16/2024 4:50 PM EDT us Сергей Vazquez MD LAB BLOOD ORDERABLES Final Result Performing Organization Address City/[facility]/ZIP Co de Phone Number [facility] [address] [place] [address], [place] [phone] * Lactate dehydrogenase (11/16/2024 1:48 PM EDT) [facility] LDH 182 120 - 246 unit/L LAB CHEMISTRY METHOD 11/16/2024 5:11 PM EDT [facility] Blood Venous blood specimen / Unknown Venipuncture / Unknown 11/16/2024 1:48 PM EDT 11/16/2024 4:50 PM EDT us Сергей Vazquez MD LAB BLOOD ORDERABLES Final Result Performing Organization Address [facility]/ZIP Co de Phone Number [facility] [address] [place] [address], [place] [phone] * (ABNORMAL) Comprehensive metabolic panel (11/16/2024 1:48 PM EDT) Pathologist [facility] Sodium 137 133 - 145 mmol/L LAB CHEMISTRY METHOD 11/16/2024 5:11 PM [facility] Potassium 5.0 3.5 - 5.5 mmol/L LAB CHEMISTRY METHOD 11/16/2024 5:11 PM [facility] Chloride 106 96 - 110 mmol/L LAB CHEMISTRY METHOD 11/16/2024 5:11 PM [facility] CO2 26 21 - 32 mmol/L LAB CHEMISTRY METHOD 11/16/2024 5:11 PM [facility] Anion Gap 5 3 - 11 LAB CHEMISTRY METHOD 11/16/2024 5:11 PM [facility] Glucose 227(H) 70 - 100 mg/dL LAB CHEMISTRY METHOD 11/16/2024 5:11 PM [facility] BUN 12 5 - 25 mg/dL LAB CHEMISTRY METHOD 11/16/2024 5:11 PM [facility] Creatinine 0.74 0.70 - 1.30 mg/dL LAB CHEMISTRY METHOD 11/16/2024 5:11 PM [facility] eGFR 98 >=60 mL/min/1. 73m2 LAB CHEMISTRY METHOD 11/16/2024 5:11 PM [facility] Comment:Calculation based on the??Chronic Kidney Disease Epidemiology Collaboration (CKD-EPI) equation refit??without adjustment for race. BUN/Creatinine Ratio 16.2 LAB CHEMISTRY METHOD 11/16/2024 5:11 PM [facility] Calcium 9.5 8.5 - 10.5 mg/dL LAB CHEMISTRY METHOD 11/16/2024 5:11 PM [facility] AST (SGOT) 14 10 - 42 unit/L LAB CHEMISTRY METHOD 11/16/2024 5:11 PM [facility] ALT (SGPT) 13 10 - 60 unit/L LAB CHEMISTRY METHOD 11/16/2024 5:11 PM [facility] Alkaline Phosphatase 109 42 - 121 unit/L LAB CHEMISTRY METHOD 11/16/2024 5:11 PM EDT [facility] Total Protein 7.4 6.0 - 8.0 g/dL LAB CHEMISTRY METHOD 11/16/2024 5:11 PM EDT [facility] Albumin 4.2 3.2 - 5.0 g/dL LAB CHEMISTRY METHOD 11/16/2024 5:11 PM EDT [facility] Total Bilirubin 0.5 0.0 - 1.4 mg/dL LAB CHEMISTRY METHOD 11/16/2024 5:11 PM EDT [facility] Blood Venous blood specimen / Unknown Venipuncture / Unknown 11/16/2024 1:48 PM EDT 11/16/2024 4:50 PM EDT Result [facility] Сергей Vazquez MD LAB BLOOD ORDERABLES Final Result Performing Organization Address City/State/[facility] Co de Phone Number [facility] [address] [place] [address], * [facility]oscopy (02/28/2024[facility] Colonoscopy no interpretation , abstracted Anatomical Region Laterality Modality Other Result [facility] Historical Provider HEALTH MAINTENANCE Final Result * Depression Screening (12/10/2023) [facility] Depression Screening abstracted Historical Provider HEALTH MAINTENANCE Final Result * Lipid panel (11/27/2023) [facility] LDL/HDL Ratio 3 0 - 4 Triglycerides 109 0 - 150 mg/dL Cholesterol 128 0 - 200 mg/dL HDL 50 >=40 mg/dL LDL Cholesterol 57 0 - 100 mg/dL Blood Venous blood specimen / Unknown Result [facility] Historical Fany OQUENDO LAB BLOOD ORDERABLES Marlee l Result * Urine Albumin Creatinine Ratio (10/15/2022) Pathologist [facility] Urine Albumin Creatinine Ratio abstracted Historical Provider HEALTH MAINTENANCE Final Result from Last 3 Months or Most Recently Relevant to Health Maintenance Insurance [employer] Care Teams Pantry Worker Relationship Specialty Start Date End Date Israel Keita MD [address] [facility] [address] [place] [address] PCP - General Internal Medicine 09/18/24
--- OUTSIDE RECORDS SUMMARY | 2024-12-23 14:45 | XMS_ITS ---
Author Organization [facility] Address [address] [place] [address] Phone Care Team Providers Care Sales And Marketing Professional Name Role Phone Israel Keita MD Primary Care Provider [phone] Active Problems Problem Noted Date Diagnosed Date Lymphocyte-rich hodgkin lymp aust[place] of intra-abdominal lymph nodes ([facility] V24, [facility] V28) 07/02/2024 Diabetic cataract ([facility] V24, [facility] V28) Parkinson's disease with dys kinesia ([facility] V24, [facility] V28) 12/05/2023 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 Orthostatic hypotension [...] 07/18/2017 Overview (07/01/2024): S/p endarterectomy Diabetic neuropathy [place] [place], [facility] V28) 1 09/17/2016 DM (diabetes mellitus), type 2 with peripheral vascular complications ([facility] [place], [facility] V28) 07/18/2017 Hyperlipidemia 07/18/2017 Type 2 diabetes mellitus wit h cataract ([facility] [place], [facility] V[place]) 07/18/2017 Multiple pulmonary nodules 05/17/2017 Overview (07/01/2024): Lung biopsy sched for 10/15/2017 Hypertension 04/12/2017 Diabetes mellitus type 2 wit h neurological manifestations ([facility] [place], [facility] V28) 07/04/2005 Spinal stenosis, lumbar brenna on, without neurogenic claudication 07/04/2005 Overview (07/01/2024): bulging disc L 4,5 Current Oncology Plans RiTUXimab Maintenance q 56 days* Plan Start Date:09/14/2024 Plan Provider:Сергей Vazquez MD Linked Problems Lymphocyte-rich hodgkin lymp austen of intra-abdominal lymph nodes ([facility] [place], [facility] [place]) Treatment Medications riTUXimab-pvvr (RUXIENCE) IVPB 250 mLriTUXimab-p vvr biosimilar (RUXIENCE) Past Plans No past plan information found. Radiation Treatments * No radiation treatments are documented for this patient in [facility]. Treatments may have been administered in another system.
--- OUTSIDE RECORDS SUMMARY | 2024-12-23 14:45 | XMS_ITS | Encounter Summary ---
Author Organization [facility] Address [address] [place], [place] [id number] Care Team Providers Care Java Technical Architect Name Role Phone Israel Keita MD Primary Care Provider Unavailab le Encounter Details Date Type Department Care Team Description 01/17/2023 Social Work [facility] Oncology Services [address] [place], [place] [phone] Jun Santos COIL STRAPPER Social History Tobacco Use Types Packs/Day Years [...] file Not on file Not on file COVID-19 Exposure Response Date Recorded In the last 10 days, have yo u been in contact with someone who was confirmed or suspected to have Coronavirus/COVID-19? No / Unsure 01/17/2023 9:23 AM EDT documented as of this encounter Plan of Treatment Not on file documented as of this encounter Visit Diagnoses Not on filedocumented in this encounter Care Teams Java Technical Architect Relationship Specialty Start Date End Date Israel Keita MD PCP - General Internal Medicine 11/23/22 documented as of this encounter
== END 2024-12-23 12:25 | disposition home or self-care (01) ==
LOC: HO.LAB 12:24
PROVIDERS: PCP Internal Medicine; Visit Provider Psychiatry & Neurology Neurology
DX: G20.B1 Parkinson's disease with dyskinesia, without mention of fluctuations (principal)
CPT/HCPCS: 36415; 82550; 84443